=== PATIENT | male | born 1960 | race American Indian/Alaskan Native ===

== ENCOUNTER 2018-01-20 11:19 | Emergency (ER) | payer SELFPAY ==
[2018-01-20] MEDS ORDERED: NORCO 5/325 PO ONE (12:16)
[2018-01-20] MEDS ORDERED: MOTRIN PO ONE (12:16)
--- NOTE | 2018-01-20 12:22 | Emergency Department Report ---
HPI - General Chief Complaint: Back Pain/Injury Time Seen by Provider: 01/20/18 12:14 - HPI HPI: Room 30 The patient is a 4-year-old male presenting with a chief complaint of back pain. The patient has suffered from low back pain for over 5 years states over the past 2 weeks the pain is worsened. Patient describes the pain as sharp in nature and hurts mostly with movement. Patient denies any recent trauma. Patient denies history of fever. Patient currently gets his pain score 4/10. Patient denies nausea or vomiting. Location: Lumbar spine Duration: Intermittently for 5 years, see above Quality: Sharp Severity: 4/10 Modifying factors: [see above] Context: [see above] Mode of transportation: [not driving] ED Past Medical Hx - Past Medical History Previous Medical History?: No - Surgical History Additional Surgical History: hernia repair - Family History Family history: no significant - Social History Smoking Status: Current Some Day Smoker Substance Use Type: Alcohol - Medications Home Medications: Home Medications Medication Instructions Recorded Confirmed Last Taken Type HYDROcodone/ACETAMINOPHEN [[place] 1 - 2 each PO Q4-6H #14 tablet 01/20/18 Unknown Rx 5-325 Tablet] Naproxen [Naprosyn] 500 mg PO Q12H PRN #30 tablet 01/20/18 Unknown Rx ED Review of Systems ROS: Stated complaint: BACK PAIN Other details as noted in HPI Constitutional: denies: fever Eyes: denies: eye pain ENT: denies: throat pain Respiratory: no symptoms reported Cardiovascular: denies: chest pain Endocrine: no symptoms reported Gastrointestinal: denies: abdominal pain, nausea, vomiting Genitourinary: denies: dysuria Musculoskeletal: back pain Neurological: denies: headache Physical Exam - Physical Exam Vital Signs: Vital Signs 01/20/18 11:29 Temperature 97.7 F Pulse Rate 67 Respiratory 16 Rate Blood Pressure 129/85 O2 Sat by Pulse 99 Oximetry Physical Exam: GENERAL: The patient is well-developed well-nourished male sitting on chair not appearing to be in acute distress HEENT: Normocephalic. Atraumatic. Extraocular motions are intact. Patient has moist mucous membranes. NECK: Supple. Trachea midline CHEST/LUNGS: Clear to auscultation. There is no respiratory distress noted. HEART/CARDIOVASCULAR: Regular. There is no tachycardia. There is no gallop rub or murmur. ABDOMEN: Abdomen is soft, nontender. Patient has normal bowel sounds. There is no abdominal distention. SKIN: There is no rash. There is no edema. There is no diaphoresis. NEURO: The patient is awake, alert, and oriented. The patient is cooperative. The patient has normal speech and gait. MUSCULOSKELETAL: There is no lumbar accident. There is no evidence of acute injury. ED Course Vital Signs 01/20/18 11:29 Temperature 97.7 F Pulse Rate 67 Respiratory 16 Rate Blood Pressure 129/85 O2 Sat by Pulse 99 Oximetry ED Medical Decision Making - Radiology Data Radiology results: image reviewed (lumbar spine x-ray) interpreted by me: Lumbar spine x-ray-no acute fracture - Differential Diagnosis lumbar spine arthritis, degenerative disc disease Critical care attestation.: If time is entered above; I have spent that time in minutes in the direct care of this critically ill patient, excluding procedure time. ED Disposition Clinical Impression: Lumbar back pain Disposition: - TO HOME OR SELFCARE Is pt being admited?: No Does the pt Need Aspirin: No Condition: Stable Instructions: Chronic Back Pain (ED), Back Pain (ED) Additional Instructions: Return to the emergency department immediately should you develop worsening symptoms, fever, inability to tolerate food or liquid or any other concerns. Prescriptions: HYDROcodone/ACETAMINOPHEN [[place] 5-325 Tablet] 1 - 2 each PO Q4-6H #14 tablet Naproxen [Naprosyn] 500 mg PO Q12H PRN #30 tablet PRN Reason: Pain, Moderate (4-6) Referrals: PRIMARY MD JASON [Primary Care Provider] - 3-5 Days RILEY LAZARO MD [Staff Physician] - 3-5 Days (Dr. Lazaro is an orthopedic surgeon. Please follow-up with him for further evaluation) Time of Disposition: 12:41
[2018-01-20 12:50] VITALS: BP 130/81
--- NOTE | 2018-01-20 13:23 | XRay Report ---
LUMBOSACRAL SPINE, 3 VIEWS: History: Pain with movement Findings: The vertebral bodies, disk spaces and posterior elements are intact. No compression deformity or malalignment. [id number] disc space narrowing is noted at L3-4, L4-5 and L5-S1. The SI joints are symmetric and unremarkable. Impression: Mild lumbar spondylosis. No evidence for acute injury to the lumbar spine.
== END 2018-01-20 12:48 | disposition home or self-care (01) ==
LOC: ED 11:19
DX: M54.5 Low back pain (principal); F17.200 Nicotine dependence, unspecified, uncomplicated
CPT/HCPCS: 72100; 99283